=== PATIENT | male | born 1955 | race Caucasian/White ===

== ENCOUNTER 2024-12-20 11:42 | Day surgery (SDC) | payer MEDICARE ==
[~2024-12-20] VITALS: Ht 177.8 cm; Wt 67.3 kg
[~2024-12-20 11:42] MED LIST: CVS1CAP2 PO; CYAN500T14 PO; IRON27TA2 PO; LIDOCAINE 2% 100 MG/5 ML SDV (FOR ANES.) As Ordered ONE; LISI20TA35 PO; THERTAB52 PO; VITA-243 PO; VITA100093 PO
[2024-12-20 14:40] VITALS: TEMP 97.1
[2024-12-20 14:55] VITALS: BP 153/87; O2SAT 98
== END 2024-12-20 15:00 | disposition home or self-care (01) ==
LOC: M OPP 11:42
PROVIDERS: ATTEND Internal Medicine Gastroenterology
DX: K64.0 First degree hemorrhoids (principal); K57.30 Diverticulosis of large intestine without perforation or abscess without bleeding; D50.9 Iron deficiency anemia, unspecified; Z88.0 Allergy status to penicillin; Z79.899 Other long term (current) drug therapy